=== PATIENT | male | born 1970 | race Caucasian/White ===

== ENCOUNTER 2020-07-02 04:38 | Outpatient (CLI) | payer BC, SELFPAY ==
[2020-07-02 08:56] LABS: Hemoglobin A1C 5.2 % (<5.7)
[2020-07-02 10:30] LABS: Calculated LDL 139 mg/dL (<100); Cholesterol 194 mg/dL (<200); HDL Cholesterol 40 mg/dL (40-60); Triglyceride 77 mg/dL (<150)
== END 2020-07-02 04:39 | disposition home or self-care (01) ==
LOC: LBO 04:39
PROVIDERS: PCP Family Medicine; Visit Provider Nurse Practitioner Family
DX: E78.00 Pure hypercholesterolemia, unspecified (principal); Z13.1 Encounter for screening for diabetes mellitus; Z00.00 Encounter for general adult medical examination without abnormal findings
CPT/HCPCS: 36415; 80061; 83036

== ENCOUNTER 2020-12-12 02:18 | Outpatient (CLI) | payer BC, SELFPAY ==
[2020-12-12 10:30] LABS: Source Nasal/Nares
[2020-12-12 19:09] LABS: COVID-19 PCR Negative (Negative)
== END 2020-12-12 02:19 | disposition home or self-care (01) ==
LOC: LBO 02:18
PROVIDERS: PCP Family Medicine; Visit Provider Surgery
DX: Z20.822 Contact with and (suspected) exposure to COVID-19 (principal); Z01.818 Encounter for other preprocedural examination
CPT/HCPCS: 87635

== ENCOUNTER 2020-12-15 06:42 | Day surgery (SDC) | payer BC, SELFPAY ==
[2020-12-15 06:45] VITALS: BP 157/107; PULSE 64; RESP 18; TEMP 36.7; O2SAT 99
--- NOTE | 2020-12-15 06:46 | COLE_ITS ---
Colonoscopy Report Date of procedure: 12/15/20 Pre-op diagnosis general: colon cancer screening Post-op diagnosis procedure note: other (transverse polyps x2) Procedure: Colonoscopy with polypectomy Surgeon: Ashli Lizarraga Anesthesia Type: General:No Airway (Angel Sabillon CRNA) Estimated blood loss (mL): 2 Pathology: other (Transverse polyp x2) Complications: None Disposition: same day Indications: Mr. Matamoros is a 50 year-old gentleman who was here today to discuss his first screening colonoscopy. He is very healthy and takes no medications. He has no family history of colon cancer. Risks benefits and complications as well as the procedure and prep were reviewed with him. We also discussed getting Covid tested. Risks, benefits and complications have been reviewed. Complications include but are not limited to bleeding, pain, perforation, missed small lesion/polyp, sore throat, aspiration and adverse reaction to the medications. Questions were entertained and answered to their satisfaction and they wished to proceed. No guarantees were given or implied. Proceed with colonoscopy under sedation Prep: Miralax/Dulcolax Procedure Start Time: 08:09 Procedure End Time: 08:28 Retraction Time: 12 minutes Findings: 2 small sessile polyps Procedure Description: After informed consent was obtained the patient was taken to the procedure room and placed in a left decubitous position. Monitors were applied and a time out was done. The patients name, date of , proc edure, allergies to medications and metal in their body was reviewed. The patient was then sedated. Once sedated and comfortable a rectal exam was done. External exam was normal. Internal exam revealed a normal sphincter tone and no palpable masses. The prostate felt smooth and slightly enlarged. The scope was then introduced and retro-flexed. No internal hemorrhoids, polyps or masses were identified on retro-flexion. The scope was then advanced to the cecum without difficulty. The ileocecal vlave and appendiceal orifice were identified. The prep was good. The scope was then slowly retracted over 12 minutes back into the rectum. Polyps were removed with cold forceps in the distal transverse colon x 2. There was no diverticulosis noted. The scope was removed and the patient was woken up and taken back to Same day surgery in stable condition. The patient tolerated the procedure well and there were no immediate complications. Follow up: The patient should follow up in 5 years unless they develop changes in bowel habits or other new gastrointestinal complaints.
--- NOTE | 2020-12-15 06:48 | W.PM.DSUDISC ---
Discharge Plan Disposition Patient Disposition: HOME Condition: Good Discharge Details Reason For Visit: COlonoscopy Attending Provider: Ashli Lizarraga Primary Care Provider: Lashawn Nathan Home Meds and New Rx's Prescriptions: Discontinued bisacodyl [Dulcolax (bisacodyl)] 5 mg tablet,delayed release (DR/EC) 5 mg PO ONCE Qty: 4 RF: 0 polyethylene glycol 3350 17 gram powder in packet 255 g PO DAILY Qty: 15 RF: 0 Discharge Instructions Instructions: Colorectal Polyps (DC) Additional Instructions: Findings: 2 small polyps Follow up: most likley 5 years Please call if you develop: fevers >101.5 Nausea or Vomiting Abdominal pain that is not transient Rectal bleeding that is more then a tbsp A hard abdomen and inability to pass gas DAY SURGERY UNIT POST ENDOSCOPY INSTRUCTIONS Instructions for everyone who is given Anesthesia: For your safety, please do the following for the next 24 Hours: a. Do not drive or operate dangerous equipment b. Do not drink alcohol beverages or use any recreational drugs for the first 24 hours or while taking pain medications. The medications in your body may have a reaction that can be dangerous. c. Do not make any important decisions or sign any important papers 1. Generally there are no restrictions on your activity after a day or so has gone by, but you may feel a bit fatigued for a few days. 2. After you arrive home you may have a light meal and return to a normal diet as you can tolerate it without feeling sick to your stomach. 3. After surgery, you may feel pain or discomfort. This should be only transient, but if it persists please contact your doctor. 4. If there are any questions regarding the findings of your procedure, please feel free to contact your doctor. 6. If you are unable to contact your doctor with a problem, contact the hospital at [phone]. 7. Continue all your regular medications unless directed otherwise. I understand the above instructions and have no questions. Signature of Patient or Responsible Adult Escort Date/Time Name of Responsible Adult Escort Signature of Nurse Date/Time Activity:: Activity as Tolerated Diet:: As Tolerated Discharge Orders Discharge Orders: Discharge Order (Routine); Ordered 12/15/20 Ordered By: Ashli Lizarraga
[2020-12-15] MEDS: Lactated Ringers 1,000 ML 80 ML IV (07:13)
--- NOTE | 2020-12-15 07:21 | W.ANESPRE ---
General Info Date of Service Date Performed: 12/15/20 Height: 5 ft 9 in Weight: 81.5 kg Body Mass Index (BMI): 26.5 Surgical Procedure: Operation Date: 12/15/20 08:35 Proposed Procedures Side Surgeon p Colonoscopy Ashli Lizarraga MD Meds Allergies and Home Medications Allergies Allergy/AdvReac Type Severity Reaction Status Date / Time No Known Allergies Allergy Unverified 12/15/20 07:00 Home Medication Medication Instructions Recorded bisacodyl 5 mg tablet,delayed 5 mg PO ONCE #4 tab 12/02/20 release polyethylene glycol 3350 17 gram 255 g PO DAILY #15 ea 12/02/20 oral powder packet Current Visit Medications: Current Medications Generic Name Dose Route Start Last Admin Trade Name Freq PRN Reason Stop Dose Admin Hyoscyamine Sulfate 0.125 mg 12/15/20 06:48 Hyoscyamine 0.125 Mg Sl/Oral/Chew SL DIRECTED PRN Ringer's Solution 1,000 mls @ 80 mls/hr 12/15/20 06:00 12/15/20 07:13 IV 01/11/21 23:59 80 mls/hr INFUSION CHIO Administration IV Miscellaneous Supplies 1 each 12/15/20 06:00 Iv Access IV 01/11/21 23:59 DIRECTED CHIO Ondansetron HCl 4 mg 12/15/20 06:48 Ondansetron 4 Mg/2 Ml Vial IVP Q4H PRN PRN Nausea / Vomiting Sodium Chloride 0 ml 12/15/20 06:00 Normal Saline Flush 10 Ml Syr IV 01/11/21 23:59 PRN PRN Sodium Chloride 0 ml 12/15/20 06:00 Normal Saline 10 Ml Vial IJ 01/11/21 23:59 DIRECTED PRN Sterile Water 0 ml 12/15/20 06:00 Water,Injection,Sterile 10 Ml Vial IJ 01/11/21 23:59 DIRECTED PRN PFSH Active Problems Active Problems: Problem Status Onset Code Encounter for screening for malignant neoplasm of colon Z12.11 Medical History Medical History Hypercholesterolemia (10/10/07) Surgical History Surgical History Hx of wisdom tooth extraction Tobacco Smoking/Tobacco Use Status: Never Alcohol Alcohol Intake: current Alcohol intake frequency: a few times a month Substance Use Substance use: Never Substance use type: does not use Vital Signs and Lab Results Vital Signs Most Recent Vital Signs in EMR: Most Recent Vital Signs Temp Pulse Resp BP Pulse Ox 36.7 C 64 18 157/107 H 99 12/15/20 06:45 12/15/20 06:45 12/15/20 06:45 12/15/20 06:45 12/15/20 06:45 Lab Results Blood Type / Crossmatch: No Data to Display Complete Blood Count: No Data to Display Complete Metabolic Panel: No Data to Display Liver Function Panel: No Data to Display Coagulation Panel: No Data to Display Cardiac Panel: No Data to Display Arterial Blood Gas: No Data to Display Venous Blood Gas: No Data to Display Pancreas Panel: No Data to Display Thyroid Panel: No Data to Display Infectious Disease: Coronavirus (COVID-19)(PCR) Negative (Negative) 12/12/20 08:41 12/12/20 Coronavirus 2019 Source Nasal/Nares 12/12/20 08:41 12/12/20 Blood Cultures: No Data to Display Toxicology Panel: No Data to Display Anesthesia Assessment and Plan Anesthesia History Personal History: No History of Anesthesia Complications Family History: No Family History of Anesthesia Complications Exercise Tolerance Exercise Tolerance: Metabolic Equivalents>4 Pertinent Negatives Pertinent Negatives: No Symptoms of GERD, No Major Cardiovascular Symptoms or Complaints and No Major Pulmonary Symptoms or Complaints Cardiac & Pulmonary Exam Cardiac Exam: Normal S1/S2 Heart Sounds Pulmonary Exam: Clear Bilateral Breath Sounds Airway Exam Known Difficult Airway: No Mallampati Class: 2 Mouth Opening: Normal (> 3cm) Thyromental Distance: Greater than 3 cm Neck Range of Motion: Full ROM Neck Circumference: Normal Teeth Condition: Normal Dentition ASA Classification ASA Score: ASA 2 Emergency Case?: No NPO Status NPO Status: NPO Clears >2 hours, Solids >8 hours Anesthesia Plan Resuscitation Status: Full Code Anesthesia Technique: General Anesthesia Airway Planned: Natural Airway Monitors Used: Standard Monitors
[2020-12-15 07:22] VITALS: BMI 26.5
--- NOTE | 2020-12-15 08:20 | BOWEL_PTH ---
PATIENT: Allan Garcia LOC: [facility] U#:[id number] AGE/SX: 50/M ROOM: RE12/15/[address]: Ashli Lizarraga MD : [id number] BED: DIS: 12/15/2020 SPEC #: [id number] RECD: 12/15/20 10:30 STATUS: MIRNA REQ #: [id number] ELYSE: 12/15/20 08:[address]: Ashli Lizarraga DEPT: Surgical Specimen RECD BY: Elisabeth Ovalle ENTERED: 12/15/20 10:31 SP TYPE: Bowel OTHR DR: Lashawn Nathan Tissues: 1 - BIOPSY BOWEL Procedures: GROSS AND MICRO LEVEL 4 Comments: [id number]
[2020-12-15 08:36] VITALS: BP 122/96; PULSE 67; RESP 20; TEMP 36.4; O2SAT 96
--- NOTE | 2020-12-15 08:58 | W.ANESPOSTOP ---
Postoperative Evaluation Date, Time and Location Date Performed: 12/15/20 Time Performed: 08:40 Patient Location: Day Surgery Unit Vital Signs Most Recent Imported Vital Signs: Most Recent Vital Signs Temp Pulse Resp BP Pulse Ox 36.4 C L 67 20 122/96 H 96 12/15/20 08:36 12/15/20 08:36 12/15/20 08:36 12/15/20 08:36 12/15/20 08:36 Pain Score Most Recent Pain Score: Most Recent Pain Score Pain Level 0 12/15/20 08:36 Assessment Mental Status: Awake (Alert & Oriented to Patient Baseline) Airway and Respiratory Function: Patent airway with normal (patient baseline) respiratory exam Cardiovascular Function: Hemodynamically Stable Hydration Status: Adequately Hydrated Nausea & Vomiting: No Nausea or Vomiting Pain: Pt. Denies Any Pain Peripheral Nerve Block: Patient did not receive a nerve block
[2020-12-15 09:04] VITALS: BP 125/92; PULSE 52; RESP 18; TEMP 36.1; O2SAT 97
== END 2020-12-15 09:45 | disposition home or self-care (01) ==
PROVIDERS: PCP Family Medicine; Visit Provider Surgery
PROC: 0DJD8ZZ Inspection of Lower Intestinal Tract, Via Natural or Artificial Opening Endoscopic (ICD-10-PCS; CPT 45378; principal; 2020-12-15 08:30)
DX: Z12.11 Encounter for screening for malignant neoplasm of colon (principal); D12.3 Benign neoplasm of transverse colon
CPT/HCPCS: 45380; 88305; J0360

== ENCOUNTER 2021-05-28 17:00 | Outpatient (REF) | payer BC, SELFPAY ==
[2021-05-29 15:45] LABS: COVID-19 RT-PCR UVMMC Result Negative (Negative)
== END 2021-05-28 17:01 | disposition home or self-care (01) ==
LOC: LBN 17:00
PROVIDERS: PCP Family Medicine; Visit Provider Nurse Practitioner Family
DX: Z20.822 Contact with and (suspected) exposure to COVID-19 (principal)
CPT/HCPCS: U0003

== ENCOUNTER 2021-08-04 09:05 | Outpatient (CLI) | payer BC, SELFPAY ==
[2021-08-04 12:51] LABS: Anion Gap 8.5 mmol/L (3-11); BUN 20 mg/dL (7-18); CO2 29.5 mmol/L (21.0-32.0); CREATININE 1.2 mg/dL (0.70-1.30); Calcium 9.1 mg/dL (8.5-10.1); Calculated LDL 107 mg/dL (<100); Chloride 106 mmol/L (98-107); Cholesterol 177 mg/dL (<200); Glucose 89 mg/dL (74-106); HDL Cholesterol 56 mg/dL (40-60); Potassium 4.2 mmol/L (3.5-5.1); Sodium 144 mmol/L (136-145); Triglyceride 70 mg/dL (<150)
== END 2021-08-04 09:06 | disposition home or self-care (01) ==
LOC: LOS 09:05
PROVIDERS: PCP Family Medicine; Referring Provider Family Medicine; Visit Provider Family Medicine
DX: Z00.00 Encounter for general adult medical examination without abnormal findings (principal); E78.5 Hyperlipidemia, unspecified; Z12.5 Encounter for screening for malignant neoplasm of prostate
CPT/HCPCS: 36415; 80048; 80061; 84153

== ENCOUNTER 2023-10-04 02:01 | Outpatient (CLI) | payer BC, SELFPAY ==
[2023-10-04 16:13] LABS: Bilirubin Negative (Negative); Blood Trace-intact (Negative); Clarity Clear (Clear); Glucose Negative (Negative); Ketones Negative (Negative); Leukocyte Esterase Negative (Negative); Nitrite Negative (Negative); Specific Gravity 1.025 (1.005-1.025); Urobilinogen 0.2 mg/dL (Up to 0.2); pH 5.5 (5-8)
[2023-10-04 16:20] LABS: Bacteria Rare HPF (Negative); C & S Indicated? No; Casts Negative LPF (Negative); Crystals Negative HPF (Negative); Epithelial Cells Negative HPF (Negative); Mucus Negative (Negative); RBC Negative HPF (0-2); WBC Negative HPF (0-5)
[2023-10-04 16:45] LABS: ALT 57 U/L (16-63); AST 25 U/L (15-37); Albumin 3.8 g/dL (3.4-5.0); Alkaline Phosphatase 114 U/L (46-116); Anion Gap 7.4 mmol/L (3-11); BUN 26 mg/dL (7-18); Bilirubin, Total 0.76 mg/dL (0.2-1.0); CO2 34.6 mmol/L (21.0-32.0); CREATININE 1.4 mg/dL (0.70-1.30); Calcium 9.3 mg/dL (8.5-10.1); Calculated LDL 104 mg/dL (<100); Chloride 99 mmol/L (98-107); Cholesterol 212 mg/dL (<200); Estimated GFR 59.73 (mL/min/1.73m2); Glucose 119 mg/dL (74-106); HDL Cholesterol 40 mg/dL (40-60); Sodium 141 mmol/L (136-145); Triglyceride 344 mg/dL (<150)
[2023-10-04 16:49] LABS: COMMENT (LAB VIEW ONLY) 111.29 mg/dL; PROTEIN < 6.0 mg/dL
[2023-10-04 17:22] LABS: Potassium 2.9 mmol/L (3.5-5.1)
[2023-10-04 19:17] LABS: Hemoglobin A1C 5.3 % (<5.7)
[2023-10-05 09:46] LABS: Hepatitis C Ab w Rflx HCV PCR Negative (Negative)
== END 2023-10-04 02:02 | disposition home or self-care (01) ==
LOC: LBO 02:01
PROVIDERS: PCP Family Medicine; Referring Provider Family Medicine; Visit Provider Family Medicine
DX: Z00.00 Encounter for general adult medical examination without abnormal findings (principal); I10 Essential (primary) hypertension; R30.0 Dysuria; Z13.6 Encounter for screening for cardiovascular disorders; R73.01 Impaired fasting glucose; E66.09 Other obesity due to excess calories; Z68.31 Body mass index [BMI] 31.0-31.9, adult
CPT/HCPCS: 36415; 80053; 80061; 86803; 81003; 81015; 82565; 83036; 84156

== ENCOUNTER 2024-01-04 09:44 | Outpatient (CLI) | payer BC, SELFPAY ==
--- OUTSIDE RECORDS SUMMARY | 2024-01-04 09:45 | XMS_ITS | Encounter Summary ---
Author Organization [facility] Address [address] [place] [address] Care Team Providers Care Strike Warfare/Missile Systems Officer Name Role Phone Unknown, Provider Primary Care Provider Monisha romeo Encounter Details Date Type Department Care Team (Late st Contact Info) Description 08/04/2021 Lab Requisition [facility] Pathology & Laboratory Medicine - [address] [address] Outr Resulting Lab, Provider Social History Tobacco Use Types Packs/Day Years Used Date Smoking Tobacco: Never Assessed Sex and Gender Information Value Date Recorded Sex Assigned at Not on file Gender Identity Not on file Sexual Orientation Not on file documented as of this encounter Plan of Treatment Not on file documented as of this encounter Procedures Procedure Name Priority Date/Time Associated Diagnosis Comments PSA TOTAL, DIAGNOSTIC Routine 08/04/2021 9:28 EDT documented in this encounter Results * PSA TOTAL, DIAGNOSTIC (08/04/2021 9:28 EDT) PSA 1.0 <=3.5 ng/mL 08/04/2021 22:43 EDT [facility] Blood VENOUS BLOOD / Unknown 08/04/2021 9:28 EDT 08/04/2021 21:37 EDT Narrative [facility] - 08/04/2021 22:43 EDT NOTE: Serum PSA concentration should not be interpreted as absolute evidence for the presence or absence of malignant disease. Assayed on Siemens ADVIA Centaur XPT using chemiluminescent technology.??Values obtained by using different assay methods cannot be used interchangeably. Provider Outr Resulting Lab CHEMISTRY & BLOOD GAS ORDERABLES Performing Organization Address City/State/[facility] Co de Phone Number [facility] [address] [place] [address] documented in this encounter Visit Diagnoses Not on filedocumented in this encounter Care Teams Strike Warfare/Missile Systems Officer Relationship Specialty Start Date End Date Unknown, Provider, PCP - General 11/28/20 documented as of this encounter
--- OUTSIDE RECORDS SUMMARY | 2024-01-04 09:45 | XMS_ITS | Referral Summary ---
Author Organization [facility] Address [address] [place] [address] Care Team Providers Care Photoengraving Supervisor Name Role Phone Unknown, Provider Primary Care Provider Unava ilable Encounters Date Type Department Care Team Description 10/04/2023 Lab Requisition [facility] Pathology & Laboratory Medicine - [address] [address] Outr Resulting Lab, Provider from Last 3 Months Social History Tobacco Use Types Packs/Day Years Used Date Smoking Tobacco: Never Assessed Sex and Gender Information Value Date Recorded Sex Assigned at Not on file Gender Identity Not on file Sexual Orientation Not on file Plan of Treatment Not on file Procedures Procedure Name Priority Date/Time Associated Diagnosis Comments HEPATITIS C AB W REFLEX TO HCV RNA BY PCR Routine 10/04/2023 15:33 EDT from Last 3 Months Results * HEPATITIS C AB W REFLEX TO HCV RNA BY PCR (10/04/2023 15:33 EDT) Hep C Antibody Negative Negative 10/05/2023 9:41 EDT [facility] Blood VENOUS BLOOD / Unknown 10/04/2023 15:33 EDT 10/04/2023 21:44 EDT Provider Outr Resulting Lab CHEMISTRY & BLOOD GAS ORDERABLES [facility] [address] [place] [address] from Last 3 Months Care Teams Photoengraving Supervisor Relationship Specialty Start Date End Date Unknown, Provider, PCP - General 11/28/20
--- OUTSIDE RECORDS SUMMARY | 2024-01-04 09:45 | XMS_ITS | Encounter Summary ---
Author Organization [facility] Address [address] [place] [address] Care Team Providers Care Enrolled Agent Name Role Phone Unknown, Provider Primary Care Provider Monisha romeo Encounter Details Date Type Department Care Team (Late st Contact Info) Description 05/28/2021 Lab Requisition [facility] Pathology & Laboratory Medicine - [address] [address] Outr Resulting Lab, Provider Social History Tobacco [...] Procedure Name Priority Date/Time Associated Diagnosis Comments ZZCOVID-19 TEST [facility] PCR Today 05/28/2021 9:15 EDT COVID-19 TESTING Routine 05/28/2021 9:15 EDT documented in this encounter Results * COVID-19 TEST [facility] PCR (05/28/2021 9:15 EDT) Swab 05/28/2021 9:15 EDT 05/28/2021 21:24 EDT Provider Outr Resulting Lab MICROBIOLOGY - GENERAL ORDERABLES [facility] [address] [place] [address] * COVID-19 TESTING (05/28/2021 9:15 EDT) COVID-19 rt-PCR Result Negative Negative 05/29/2021 15:39 EDT [facility] Comment: This test has not been FDA cleared or approved. This test has been authorized by FDA under an EUA for use by authorized laboratories. This test has been authorized only for detection of nucleic acid from 2019-nCoV, not for any other viruses or pathogens. This test is only authorized for the duration of the declaration that circumstances exist justifying the authorization of emergency use of in vitro diagnostic tests for detection and/or diagnosis of 2019-nCoV under section 564(b)(1) of Act, 21 U.S.C ?? 360bbb-3(b) (1), unless the authorization is terminated or revoked sooner. Negative results do not preclude 2019-nCoV infection and should not be used as the sole basis for treatment or other patient management decisions. Negative results must be combined with clinical observations, patient history, and epidemiological information. Testing was performed using the cullen SARS-CoV-2 assay ([employer] on the Cullen 6800 System Performing Lab Cullen [address] [facility] 05/29/2021 15:39 EDT [facility] Swab 05/28/2021 9:15 EDT 05/28/2021 21:24 EDT Provider Outr Resulting Lab MICROBIOLOGY - GENERAL ORDERABLES [facility] [address] [place] [address] documented in this encounter Visit Diagnoses Not on filedocumented in this encounter Care Teams Enrolled Agent Relationship Specialty Start Date End Date Unknown, Provider, PCP - General 11/28/20 documented as of this encounter
--- OUTSIDE RECORDS SUMMARY | 2024-01-04 09:45 | XMS_ITS | Encounter Summary ---
Author Organization [facility] Address [address] [place] [address] Care Team Providers Care Material Specialist Name Role Phone Unknown, Provider Primary Care Provider Unamalik ilable Encounter Details Date Type Department Care Team (Late st Contact Info) Description 12/15/2020 Lab Requisition [facility] Pathology & Laboratory Medicine - [address] [address] Robert Lizarraga MD [address] [place] [phone] Encounter for screening for malignant neoplasm of colon Social History Tobacco Use Types Packs/Day Years Used Date Smoking Tobacco: Never Assessed Sex and Gender Information Value Date Recorded Sex Assigned at Not on file Gender Identity Not on file Sexual Orientation Not on file documented as of this encounter Plan of Treatment Not on file documented as of this encounter Procedures Procedure Name Priority Date/Time Associated Diagnosis Comments SURGICAL PATHOLOGY Today 12/15/2020 8:20 EDT Encounter for screening for malignant neoplasm of colon documented in this encounter Results * SURGICAL PATHOLOGY (12/15/2020 8:20 EDT) Note to Patient The following pathology results have been interpreted by your pathologist and may be available to you before your health provider has had the opportunity to review them. Please allow time for your provider to receive these results and explore management options, if applicable. 12/18/2020 9:55 EDT [facility] Final Diagnosis A. COLON, TRANSVERSE, POLYPS, BIOPSY: - Tubular adenoma(s). 12/18/2020 9:55 EDT [facility] Attestation There was significant resident/fellow involvement in the diagnostic evaluation of this case. By the signature below, the attending physician certifies that they have personally conducted a gross and/or microscopic examination of the described specimens and rendered or confirmed the above diagnosis. 12/18/2020 9:55 EDT [facility] at 0955 Clinical History Screening for colon cancer 12/18/2020 9:55 EDT [facility] Gross Description A. Received in formalin labelled with proper patient identification (initials T, W) and transverse colon polyps x2 are four pale garcia focally brown speckled tissues (0.4 x 0.3 x 0.2 cm to 0.3 x 0.2 x 0.1 cm). Entirely submitted in A1. Jesse Daniels 12/16/2020 8:44 12/18/2020 9:55 EDT [facility] Resident/Kirill w: Kyaw Robertson MD 12/18/2020 9:55 EDT [facility] Performing Lab [email or web address] LAB 12/18/2020 9:55 EDT [facility] Scanned Images 12/18/2020 9:55 EDT [facility] Tissue ENTIRE TRANSVERSE COLON / Unknown 12/15/2020 8:20 EDT 12/15/2020 18:08 EDT Robert Lizarraga MD PATHOLOGY ORDERA WAGNER [facility] [address] [place] [address] documented in this encounter Visit Diagnoses Diagnosis Encounter for screening for malignant neoplasm of colon Special screening for malignant neoplasms, colon documented in this encounter Care Teams Material Specialist Relationship Specialty Start Date End Date Unknown, Provider, PCP - General 11/28/20 documented as of this encounter
--- OUTSIDE RECORDS SUMMARY | 2024-01-04 09:45 | XMS_ITS | Encounter Summary ---
Author Organization [facility] Address [address] [place] [address] Care Team Providers Care Cutter In Name Role Phone Unknown, Provider Primary Care Provider Monisha romeo Encounter Details Date Type Department Care Team (Late st Contact Info) Description 10/04/2023 Lab Requisition [facility] Pathology & Laboratory Medicine - [address] [id number] Outr Resulting Lab, Provider Social History Tobacco [...] RNA BY PCR Routine 10/04/2023 15:33 EDT documented in this encounter Results * HEPATITIS C AB W REFLEX TO HCV RNA BY PCR (10/04/2023 15:33 EDT) Hep C Antibody Negative Negative 10/05/2023 9:41 EDT [facility] Blood VENOUS BLOOD / Unknown 10/04/2023 15:33 EDT 10/04/2023 21:44 EDT Provider Outr Resulting Lab CHEMISTRY & BLOOD GAS ORDERABLES [facility] [address] [place], [place] [id number] documented in this encounter Visit Diagnoses Not on filedocumented in this encounter Care Teams Cutter In Relationship Specialty Start Date End Date Unknown, Provider, PCP - General 11/28/20 documented as of this encounter
--- OUTSIDE RECORDS SUMMARY | 2024-01-04 09:45 | XMS_ITS | Clinical Summary ---
Author Organization [facility] Address [address] [place] [address] Care Team Providers Care Band Salvager Name Role Phone Unknown, Provider Primary Care Provider Monisha ilnils Encounters Date Type Department Care Team Description 10/04/2023 Lab Requisition [facility] Pathology & Laboratory Medicine - [address] [address] Outr Resulting Lab, Provider from Last 3 Months Social History Tobacco Use Types Packs/Day Years Used Date Smoking Tobacco: Never Assessed Sex and Gender Information Value Date Recorded Sex Assigned at Not on file Gender Identity Not on file Sexual Orientation Not on file Plan of Treatment Health Maintenance Due Date Last Done Comments Hepatitis B Vaccine (1 of 3 - 19+ 3-dose series) 01/31 COVID-19 Vaccine ( season) 2023 Hepatitis C Screen Completed 10/04/2023 Procedures Procedure Name Priority Date/Time Associated Diagnosis Comments HEPATITIS C AB W REFLEX TO HCV RNA BY PCR Routine 10/04/2023 15:33 EDT from Last 3 Months Results * HEPATITIS C AB W REFLEX TO HCV RNA BY PCR (10/04/2023 15:33 EDT) Hep C Antibody Negative Negative 10/05/2023 9:41 EDT [facility] Blood VENOUS BLOOD / Unknown 10/04/2023 15:33 EDT 10/04/2023 21:44 EDT Provider Outr Resulting Lab CHEMISTRY & BLOOD GAS ORDERABLES [facility] [address] [place] [address] from Last 3 Months Care Teams Band Salvager Relationship Specialty Start Date End Date Unknown, Provider, PCP - General 11/28/20
[2024-01-04 10:15] LABS: Anion Gap 6.3 mmol/L (3-11); BUN 23 mg/dL (7-18); CO2 30.7 mmol/L (21.0-32.0); CREATININE 1.2 mg/dL (0.70-1.30); Calcium 9.5 mg/dL (8.5-10.1); Chloride 108 mmol/L (98-107); Estimated GFR 71.86 (mL/min/1.73m2); Glucose 80 mg/dL (74-106); Potassium 3.9 mmol/L (3.5-5.1); Sodium 145 mmol/L (136-145)
== END 2024-01-04 09:45 | disposition home or self-care (01) ==
LOC: LBO 09:44
PROVIDERS: PCP Family Medicine; Visit Provider Family Medicine
DX: I10 Essential (primary) hypertension (principal)
CPT/HCPCS: 36415; 80048

== ENCOUNTER 2024-08-20 10:56 | Outpatient (CLI) | payer BC, SELFPAY ==
[2024-08-20 11:16] LABS: Anion Gap 9.1 mmol/L (3-11); BUN 18 mg/dL (7-18); CO2 29.9 mmol/L (21.0-32.0); CREATININE 1.3 mg/dL (0.70-1.30); Calcium 9.3 mg/dL (8.5-10.1); Calculated LDL 118 mg/dL (<100); Chloride 103 mmol/L (98-107); Cholesterol 197 mg/dL (<200); Estimated GFR 64.88 (mL/min/1.73m2); Glucose 134 mg/dL (74-106); HDL Cholesterol 49 mg/dL (>or=40); Potassium 3.7 mmol/L (3.5-5.1); Sodium 142 mmol/L (136-145); Triglyceride 150 mg/dL (<150)
== END 2024-08-20 10:57 | disposition home or self-care (01) ==
LOC: LBO 10:56
PROVIDERS: PCP Family Medicine; Visit Provider Family Medicine
DX: Z13.6 Encounter for screening for cardiovascular disorders (principal); Z13.1 Encounter for screening for diabetes mellitus
CPT/HCPCS: 36415; 80048; 80061